=== PATIENT | male | born 1950 | race Caucasian/White ===

== ENCOUNTER 2022-04-09 13:02 | Outpatient (CLI) | payer MEDICARE | END 2022-04-09 13:03 | disposition home or self-care (01) | LOC: CSHULT 13:02 | PROVIDERS: ATTEND Family Medicine | DX: L03.116 Cellulitis of left lower limb (principal); I83.893 Varicose veins of bilateral lower extremities with other complications; M79.605 Pain in left leg | CPT/HCPCS: 93923; 93970 ==